=== PATIENT | female | born 2000 | race Caucasian/White ===

== ENCOUNTER 2023-04-24 07:43 | Outpatient (RCR) | payer OTHER, SELFPAY | END 2023-04-24 23:59 | disposition home or self-care (01) | LOC: RPT 07:43 | PROVIDERS: ATTENDING PHYSICIAN Family Medicine | DX: M54.50 Low back pain, unspecified (principal); Z73.6 Limitation of activities due to disability | CPT/HCPCS: 97110; 97162; 97530 ==

== ENCOUNTER 2023-05-02 10:35 | Outpatient (RCR) | payer OTHER, SELFPAY | END 2023-05-02 23:59 | disposition home or self-care (01) | LOC: RPT 10:35 | PROVIDERS: ATTENDING PHYSICIAN Family Medicine | DX: M54.50 Low back pain, unspecified (principal); Z73.6 Limitation of activities due to disability; M54.2 Cervicalgia | CPT/HCPCS: 97110 ==